=== PATIENT | male | born 1990 | race Caucasian/White ===

== ENCOUNTER 2021-02-06 19:51 | Emergency (ER) | payer OTHER, SELFPAY ==
[2021-02-06 19:53] VITALS: BP 144/85; PULSE 63; RESP 15; TEMP 36.8; O2SAT 97; BMI 20.7
[2021-02-06] MEDS: TET,DIPH,PERTUSS(ACELL),VAC/PF 0.5 ML SYRINGE IM (20:05)
--- NOTE | 2021-02-06 22:33 | ED.WOUNDLAC ---
HPI - Wound/Laceration General Chief Complaint: Wound/Laceration Stated Complaint: rt thumb cut Time Seen by Provider: 02/06/21 22:01 Source: patient Mode of arrival: Ambulatory Limitations: no limitations History of Present Illness HPI narrative: Patient is a 30-year-old male who presents with right thumb laceration, he states he was at work dumping a trash can into the dumpster when he cut his right thumb on the palmar side. He has no numbness or tingling or decreased range of motion. But it does hurt. Tetanus is now up to date Onset (ago): hour(s) Related Data Allergies Allergy/AdvReac Type Severity Reaction Status Date / Time No Known Drug Allergies Allergy Verified 02/06/21 19:58 Review of Systems Review of Systems Narrative: GENERAL: Denies chills,fever HEENT: Denies throat pain RESPIRATORY: Denies dyspnea, cough, wheezing CARDIOVASCULAR: Denies chest pain, palpitations GASTROINTESTINAL: Denies nausea, vomiting MUSCULOSKELETAL: Denies extremity pain, injury SKIN: See HPI NEUROLOGIC: Denies weakness, dizziness, headache, numbness 8 point review of systems is negative except for those stated above and HPI Patient History Medical History (Updated 02/06/21 @ 22:55 by Alethea Rivero DO) Patient denies medical problems Social History Smoking Status: Current every day smoker Smoking Status: Current every day smoker alcohol intake frequency: a few times a week Substance Use Type: marijuana Exam Initial Vital Signs Initial Vital Signs: Vital Signs Temperature 98.2 F 02/06/21 19:53 Pulse Rate 63 02/06/21 19:53 Respiratory Rate 15 02/06/21 19:53 Blood Pressure 144/85 H 02/06/21 19:53 Pulse Oximetry 97 02/06/21 19:53 GENERAL: Well-appearing, well-nourished and in no acute distress. CARDIOVASCULAR: peripheral pulses in tact, cap refill <2 sec RESPIRATORY: No respiratory distress, speaks in full sentences without difficulty EXTREMITIES: Normal range of motion, no clubbing or edema. Neurovascularly intact Right thumb able to flex extend make okay sign, sensation intact NEUROLOGICAL: Cranial nerves II through XII grossly intact. Normal gait and speech. SKIN: 2 cm laceration right thumb near the MCP on palmar side Procedures Laceration Repair Laceration 1: Site: hand (thumb) Side (If applicable): right Size (cm): 2 Description: linear Depth: simple, single layer Local Anesthetic: lidocaine 1% Amount of anesthesia used (mL): 1 Pre-repair: wound explored and irrigated extensively Skin layer closed with: nylon Size (cm): 4-0 Number of sutures: 2 Course Orders Ordered: Discontinued Medications Diphtheria/Tetanus/Acell Pertussis (Tet,Diph,Pertuss(Acell),Vac/Pf 0.5 Ml Syringe) 0.5 ml IM .ONCE ONE Stop: 02/06/21 20:02 Last Admin: 02/06/21 20:05 Dose: 0.5 ml Documented by: FLORECITA Lidocaine HCl (Lidocaine 1% (Pf)) 2 ml SUBCUT NOW ONE Stop: 02/06/21 22:56 Last Admin: 02/06/21 23:05 Dose: 2 ml Documented by: JASON Vital Signs Vital signs: Vital Signs - 8 hr 02/06/21 19:53 Temperature 98.2 F Pulse Rate 63 Respiratory Rate 15 Blood Pressure 144/85 H Pulse Oximetry 97 Discharge Plan Departure Patient Disposition: Home Clinical Impression: Laceration of right thumb Qualifiers: Encounter type: initial encounter Damage to nail status: without damage Foreign body presence: without foreign body Qualified Code(s): S61.011A - Laceration without foreign body of right thumb without damage to nail, initial encounter Instructions: DI for Laceration Repair Activity Restrictions/Additional Instructions: 1. Have your suture removed in 5-7 days, you may go to walk-in clinic, return to the ER or call your primary care physician. 2. No soaking in water including dishes, bathtubs, Lakes, swimming pools etc 3. Signs of infection include, but not limited to, increased redness, increased swelling, increased pain, fever and purulent drainage, if the symptoms should arise, you may need an antibiotic and you should have a reevaluation either by your primary care provider or by the emergency department. Referrals: [facility] Resources [Outside]
[2021-02-06] MEDS: LIDOCAINE 1% (PF) 2 ML SUBCUT (23:05)
== END 2021-02-06 23:17 | disposition home or self-care (01) ==
PROVIDERS: Emergency Provider Emergency Medicine
DX: S61.011A Laceration without foreign body of right thumb without damage to nail, initial encounter (principal); W26.8XXA Contact with other sharp object(s), not elsewhere classified, initial encounter; Y99.0 Civilian activity done for income or pay
CPT/HCPCS: 12001; 90471; 99283; 90715

== ENCOUNTER 2021-02-13 20:24 | Emergency (ER) | payer OTHER, SELFPAY ==
--- NOTE | 2021-02-13 20:39 | ED.GENADULT ---
HPI - General Adult General Chief complaint: Recheck/Abnormal Lab/Rx Stated complaint: suture removal Time Seen by Provider: 02/13/21 20:39 Source: patient Mode of arrival: Ambulatory Limitations: no limitations History of Present Illness HPI narrative: 30-year-old male who approximately 7 days ago sustained a cut to his right thumb. He is here to have the stitches removed Related Data Allergies Allergy/AdvReac Type Severity Reaction Status Date / Time No Known Drug Allergies Allergy Verified 02/06/21 19:58 Review of Systems Musculoskeletal Comments: No pain to the right thumb Integumentary/Breasts Comments: Healing wound right thumb Neurologic Comments: No tingling to right thumb Patient History Medical History Patient denies medical problems Social History Smoking Status: Current every day smoker Smoking Status: Current every day smoker alcohol intake frequency: a few times a week Substance Use Type: marijuana Exam Initial Vital Signs Initial Vital Signs: Vital Signs Temperature 97.9 F 02/13/21 20:44 Pulse Rate 70 02/13/21 20:44 Respiratory Rate 16 02/13/21 20:44 Blood Pressure 122/66 02/13/21 20:44 Pulse Oximetry 99 02/13/21 20:44 Skin Other: Wound on the palmar aspect of the base of the right thumb looks well. Neuro Sensory Exam: no sensory deficits noted Extrem Other: Full range of motion of right thumb Course Vital Signs Vital signs: Vital Signs - 8 hr 02/13/21 20:44 Temperature 97.9 F Pulse Rate 70 Respiratory Rate 16 Blood Pressure 122/66 Pulse Oximetry 99 Medical Decision Making [facility] Narrative Medical decision making narrative: Stitches were removed by nursing in triage without incident. Patient was given return precautions. He expressed understanding and agreement. Discharge Plan Departure Patient Disposition: Home Clinical Impression: Encounter for removal of sutures Activity Restrictions/Additional Instructions: Keep the area clean with soap and water. You can covered with a bandage is needed. Return to the emergency department for any new or worsening symptoms
[2021-02-13 20:44] VITALS: BP 122/66; PULSE 70; RESP 16; TEMP 36.6; O2SAT 99
== END 2021-02-13 20:46 | disposition home or self-care (01) ==
PROVIDERS: Emergency Provider Emergency Medicine
DX: Z48.02 Encounter for removal of sutures (principal); Y99.0 Civilian activity done for income or pay
CPT/HCPCS: 99281

== ENCOUNTER → 2022-12-08 11:07 | Outpatient (CLI) | payer OTHER, SELFPAY ==
--- NOTE | 2022-12-08 11:08 | DI.RAD.S_ITS ---
PROCEDURE: XR KNEE RT 3V INDICATIONS: right knee strain TECHNIQUE: 3 views of the knee were acquired. COMPARISON: None. FINDINGS: Bones: No fractures or dislocations. No suspicious bony lesions. Soft tissues: Moderate joint effusion. No suspicious soft tissue calcifications. IMPRESSION: Moderate effusion. Dictated by: Caitlin Stuart M.D. on 12/08/2022 at 15:38 Approved by: Caitlin Stuart M.D. on 12/08/2022 at 15:39
== END ==
PROVIDERS: Referring Provider Nurse Practitioner Family; Visit Provider Nurse Practitioner Family
DX: S86.911A Strain of unspecified muscle(s) and tendon(s) at lower leg level, right leg, initial encounter (principal); M25.461 Effusion, right knee; X58.XXXA Exposure to other specified factors, initial encounter
CPT/HCPCS: 73562